=== PATIENT | female | born 1950 ===

== ENCOUNTER 2018-02-16 08:37 | Outpatient (CLI) | payer MEDICARE, MEDICAID | END 2018-02-16 08:38 | disposition home or self-care (01) | LOC: C.CARD 08:37 ==

== ENCOUNTER 2018-02-26 09:40 | Outpatient (CLI) | payer MEDICARE, MEDICAID | END 2018-02-26 09:41 | disposition home or self-care (01) | LOC: C.MAMMO 09:41 ==

== ENCOUNTER 2018-03-06 11:28 | Outpatient (CLI) | payer MEDICARE, MEDICAID | END 2018-03-06 11:29 | disposition home or self-care (01) | LOC: C.MAMMO 11:29 ==